=== PATIENT | male | born 1960 | race Caucasian/White ===

== ENCOUNTER → 2016-09-23 | Outpatient (CLI) | payer OTHER ==
[~2016-09-23] VITALS: Ht 177.8 cm; Wt 111.1 kg
[~2016-09-23] MED LIST: ADVA230A INH; LIDOCAINE 2% INJ 100 MG/5 ML SDV (FOR ANES.) As Ordered ONE; METF500T PO; MULT1TAB10 PO; NS 1,000 ML IV SCH; PROPOFOL 200 MG/20 ML VIAL As Ordered ONE; SIMV20TA2 PO; VERA27.5; VITA100037 PO
--- NOTE | 2016-09-23 11:11 | ROOR ---
Patient Name: Rolando Carias Procedure Date: 09/23/2016 10:55 AM Date of : 1960 Age: 56 Room: [facility] Gender: Male Note Status: Finalized Procedure: Upper GI endoscopy Indications: Abnormal UGI series, Abnormal CT of the GI tract Providers: Michael Worley Jr, MD Referring MD: Po Grimes MD Requesting Provider: Medicines: Propofol per Anesthesia Complications: No immediate complications. Procedure: Pre-Anesthesia Assessment: - Prior to the procedure, a History and Physical was performed, and patient medications and allergies were reviewed. The patient is competent. The risks and benefits of the procedure and the sedation options and risks were discussed with the patient. All questions were answered and informed consent was obtained. Patient identification and proposed procedure were verified by the physician and the nurse in the pre-procedure area and in the procedure room. Mental Status Examination: alert and oriented. Airway Examination: normal oropharyngeal airway and neck mobility. Respiratory Examination: clear to auscultation. CV Examination: normal. ASA Grade Assessment: II - A patient with mild systemic disease. After reviewing the risks and benefits, the patient was deemed in satisfactory condition to undergo the procedure. The anesthesia plan was to use moderate sedation / analgesia (conscious sedation). Immediately prior to administration of medications, the patient was re-assessed for adequacy to receive sedatives. The heart rate, respiratory rate, oxygen saturations, blood pressure, adequacy of pulmonary ventilation, and response to care were monitored throughout the procedure. The physical status of the patient was re-assessed after the procedure. The Endoscope was introduced through the mouth, and advanced to the second part of duodenum. The patient tolerated the procedure well. Findings: The upper third of the esophagus, middle third of the esophagus and lower third of the esophagus were normal. The gastroesophageal junction was normal. Patchy mild inflammation characterized by congestion (edema) and granularity was found in the gastric fundus, in the gastric antrum and in the prepyloric region of the stomach. Biopsies were taken with a cold forceps for histology. The second portion of the duodenum was normal. Scattered moderate inflammation characterized by congestion (edema), erythema, friability and granularity was found in the first portion of the duodenum. Impression: - Normal upper third of esophagus, middle third of esophagus and lower third of esophagus. - Normal gastroesophageal junction. - Gastritis. Biopsied. - Normal second portion of the duodenum. - Duodenitis. Recommendation: - Discharge patient to home (ambulatory). - Return to my office in 2 weeks. Michael Worley MD Michael Worley Jr, MD 09/23/2016 11:11:23 AM This report has been signed electronically. Number of Addenda: 0 Note Initiated On: 09/23/2016 10:55 AM Estimated Blood Loss: Estimated blood loss: none.
[2016-09-23 11:25] VITALS: BP 150/75
== END ==
LOC: M OPP 10:00
PROVIDERS: ATTEND Surgery
DX: R93.3 Abnormal findings on diagnostic imaging of other parts of digestive tract (principal); K29.70 Gastritis, unspecified, without bleeding; K29.80 Duodenitis without bleeding; R10.11 Right upper quadrant pain; E11.9 Type 2 diabetes mellitus without complications; J44.9 Chronic obstructive pulmonary disease, unspecified; J45.909 Unspecified asthma, uncomplicated; E78.5 Hyperlipidemia, unspecified; G47.30 Sleep apnea, unspecified; R06.83 Snoring; Z87.891 Personal history of nicotine dependence; Z80.6 Family history of leukemia; Z88.6 Allergy status to analgesic agent; Z88.8 Allergy status to other drugs, medicaments and biological substances; Z79.84 Long term (current) use of oral hypoglycemic drugs; Z79.51 Long term (current) use of inhaled steroids; Z79.899 Other long term (current) drug therapy

== ENCOUNTER → 2017-01-03 | Outpatient (CLI) | payer OTHER ==
[~2017-01-03] MED LIST changes: -LIDOCAINE 2% INJ 100 MG/5 ML SDV (FOR ANES.) As Ordered ONE; -NS 1,000 ML IV SCH; -PROPOFOL 200 MG/20 ML VIAL As Ordered ONE
--- NOTE | 2017-01-03 08:39 | REP ---
Clinical: COPD . Comparison: 09/10/2015 . Technique: PA and lateral. Findings: The mediastinum and cardiac silhouette are normal. The lung garcia demonstrate chronic changes without acute consolidation, effusion, or pneumothorax. The skeletal structures are intact and normal. Impression: 1. No acute cardiopulmonary process. Signed by Jose Giles MD 01/03/2017 08:31 A
== END ==
LOC: M SMT 07:58
PROVIDERS: ATTEND Internal Medicine Pulmonary Disease
DX: J44.9 Chronic obstructive pulmonary disease, unspecified (principal)

== ENCOUNTER → 2020-01-10 | Outpatient (REF) | payer OTHER ==
[~2020-01-10] MED LIST changes: -METF500T PO; +METF500T13 PO; -SIMV20TA2 PO; +SIMV20TA22 PO; -VITA100037 PO; +VITA100067 PO
[2020-01-12 08:08] LABS: LDL DIRECT 50 mg/dL (0-99)
== END ==
LOC: M LAB REF 16:57
PROVIDERS: ATTEND Family Medicine
DX: E78.5 Hyperlipidemia, unspecified (principal)

== ENCOUNTER → 2021-07-30 | Outpatient (REF) | payer OTHER ==
[2021-07-30 17:45] LABS: AMYLASE 47 U/L (25-115); LIPASE 113 U/L (73-393)
== END ==
LOC: M LAB REF 16:20
PROVIDERS: ATTEND Family Medicine
DX: R10.9 Unspecified abdominal pain (principal)

== ENCOUNTER → 2021-08-17 | Outpatient (CLI) | payer OTHER ==
[~2021-08-17] MED LIST changes: +GASTROGRAFIN SOLUTION 30ML (Q9963) As Ordered ONE; +ISOVUE-370 76% 100ML VIAL As Ordered ONE
--- NOTE | 2021-08-17 20:16 | REP ---
INDICATION: ABD PAIN. COMPARISON: None TECHNIQUE: Axial contrast-enhanced images from the lung bases to the pubic symphysis using oral and 100 cc Isovue 370 intravenous contrast material. Coronal and sagittal reformations obtained. This CT examination was performed using the following dose reduction techniques: Automated exposure control, adjustment of mA and/or kv according to the patient's size, and the use of iterative reconstruction technique. FINDINGS: There is significant circumferential thickening of the visualized esophagus to the gastroesophageal junction. Liver demonstrates generalized fatty infiltration without focal hepatic lesion. Spleen, pancreas, gallbladder, bilateral adrenal glands and kidneys are essentially normal. Subcentimeter left renal cyst is suggested. The small and large bowel is without obstruction or acute inflammatory process. Normal terminal ileum and cecum are identified in the right lower quadrant. Colonic and sigmoid diverticulosis noted without acute diverticulitis. Pelvis demonstrates normal bladder and age-appropriate prostate/seminal vesicles. No ascites. No free air. No intraperitoneal or retroperitoneal adenopathy. Abdominal aorta and vasculature demonstrate atherosclerotic changes without aneurysm or dissection. Musculoskeletal structures are intact and without acute osseous abnormality. IMPRESSION: 1. Circumferential esophageal thickening requires correlation and may warrant GI consultation. 2. Diverticulosis without acute diverticulitis. 3. Hepatosteatosis <Electronically signed by Jose Giles > 08/17/212011
== END ==
LOC: M RAD 14:15
PROVIDERS: ATTEND Family Medicine
DX: R10.9 Unspecified abdominal pain (principal)
CPT/HCPCS: 74178; Q9963; Q9967

== ENCOUNTER → 2021-09-04 | Outpatient (CLI) | payer OTHER ==
[~2021-09-04] MED LIST changes: -GASTROGRAFIN SOLUTION 30ML (Q9963) As Ordered ONE; -ISOVUE-370 76% 100ML VIAL As Ordered ONE
== END ==
LOC: M RAD 09:02
PROVIDERS: ATTEND Family Medicine
DX: M54.59 Other low back pain (principal)

== ENCOUNTER → 2022-05-16 | Outpatient (CLI) | payer OTHER ==
[~2022-05-16] MED LIST changes: +VITA100093 PO
== END ==
LOC: M LABSMTC 11:36
PROVIDERS: ATTEND Anesthesiology
DX: Z01.812 Encounter for preprocedural laboratory examination (principal); Z20.822 Contact with and (suspected) exposure to COVID-19

== ENCOUNTER 2022-05-20 06:35 | Day surgery (SDC) | payer OTHER ==
[~2022-05-20] VITALS: Ht 177.8 cm; Wt 110.6 kg
[~2022-05-20 06:35] MED LIST changes: +NS 1,000 ML IV ONE
[2022-05-20] MEDS ORDERED: LIDOCAINE 2% 100MG/5ML SDV (FOR ANES.) As Ordered ONE (07:06)
[2022-05-20] MEDS ORDERED: propofoL 200 MG/20 ML VIAL As Ordered ONE (07:06)
[2022-05-20 08:10] VITALS: BP 158/76
== END 2022-05-20 08:19 | disposition home or self-care (01) ==
LOC: M OPP 06:35
PROVIDERS: ATTEND Surgery
DX: Z12.11 Encounter for screening for malignant neoplasm of colon (principal); D12.2 Benign neoplasm of ascending colon; K57.30 Diverticulosis of large intestine without perforation or abscess without bleeding; Z79.02 Long term (current) use of antithrombotics/antiplatelets; Z79.51 Long term (current) use of inhaled steroids; Z79.84 Long term (current) use of oral hypoglycemic drugs; Z79.899 Other long term (current) drug therapy; Z99.89 Dependence on other enabling machines and devices; G47.33 Obstructive sleep apnea (adult) (pediatric); E11.9 Type 2 diabetes mellitus without complications; E78.00 Pure hypercholesterolemia, unspecified; J44.9 Chronic obstructive pulmonary disease, unspecified; Z80.6 Family history of leukemia; Z87.891 Personal history of nicotine dependence

== ENCOUNTER → 2025-03-08 | Outpatient (CLI) | payer OTHER ==
[~2025-03-08] MED LIST changes: -NS 1,000 ML IV ONE
== END ==
LOC: M WUC 09:42
PROVIDERS: ATTEND Family Medicine
DX: M54.50 Low back pain, unspecified (principal); M47.816 Spondylosis without myelopathy or radiculopathy, lumbar region

== ENCOUNTER → 2025-04-16 | Outpatient (CLI) | payer OTHER ==
[~2025-04-16] MED LIST changes: +E-Z-GAS II EFFERVESCENT PACKET (SODIUM BICARB./CITRIC ACID/SIMETHICONE) As Ordered ONE; +E-Z-HD 98% w/w 340 GM SUSP BTL As Ordered ONE; +E-Z-PAQUE 96% w/w SUSP 176 GM BTL As Ordered ONE
== END ==
LOC: M RAD 07:32
PROVIDERS: ATTEND Surgery
DX: R13.10 Dysphagia, unspecified (principal); R93.3 Abnormal findings on diagnostic imaging of other parts of digestive tract

== ENCOUNTER 2025-05-09 08:44 | Inpatient (IN) | payer OTHER, MEDICARE ==
[~2025-05-09] VITALS: Ht 177.8 cm; Wt 109.7 kg
[2025-05-09] VITALS (21 sets, daily range): BP systolic 104–148; BP diastolic 53–102; TEMP 97.3–98.4; O2SAT 95–98
[~2025-05-09 08:44] MED LIST changes: +BREO1INH3 INH; -E-Z-GAS II EFFERVESCENT PACKET (SODIUM BICARB./CITRIC ACID/SIMETHICONE) As Ordered ONE; -E-Z-HD 98% w/w 340 GM SUSP BTL As Ordered ONE; -E-Z-PAQUE 96% w/w SUSP 176 GM BTL As Ordered ONE; +MOME50SP2 NARES; +OMEP40CA5 PO
[2025-05-09] MEDS ORDERED: METOPROLOL 5 MG/5 ML VIAL As Ordered ONE (09:52)
[2025-05-09] MEDS ORDERED: LR 1,000 ML IV SCH (10:05)
[2025-05-09] MEDS ORDERED: METOPROLOL 5 MG/5 ML VIAL IV PRN (10:05)
[2025-05-09] MEDS ORDERED: ONDANSETRON 4MG 2ML VIAL IV PRN (10:05)
[2025-05-09] MEDS ORDERED: MAALOX 30 ML SUSP *UDC PO PRN (10:45)
[2025-05-09] MEDS ORDERED: ACETAMINOPHEN 325 MG TAB PO PRN (10:45)
[2025-05-09] MEDS ORDERED: MOM 30 ML SUSPENSION UDC PO PRN (10:45)
[2025-05-09 11:06] LABS: PLATELET COUNT, AUTOMATED 207 10^3/uL (150-450)
[2025-05-09] MEDS: METOPROLOL 5 MG/5 ML VIAL IV SCH ×2 (11:14→13:05)
[2025-05-09] MEDS: METOPROLOL TART 25 MG TABLET PO SCH ×2 (11:14→17:21)
[2025-05-09] MEDS ORDERED: GLUCOSE 4 GM CHEW PO PRN (11:25)
[2025-05-09] MEDS ORDERED: GLUCAGON INJ 1 MG VIAL SC PRN (11:25)
[2025-05-09] MEDS ORDERED: DEXTROSE 50% 50 ML SYRINGE IV PRN (11:25)
[2025-05-09 11:37] LABS: ALT/SGPT 22 U/L (7.0-40); AST/SGOT 17 U/L (<34); CALCIUM LEVEL 8.6 MG/DL (8.3-10.6); CARBON DIOXIDE LEVEL 28 MMOL/L (20-31); CHLORIDE LEVEL 107 MMOL/L (98-107); CREATININE FOR GFR 0.53 MG/DL (0.70-1.30); GLOMERULAR FILTRATION RATE > 90.0 (>49); MAGNESIUM LEVEL 1.8 MG/DL (1.8-2.4); POTASSIUM SERUM 4.3 MMOL/L (3.5-5.1); SODIUM LEVEL 142 MMOL/L (136-145)
[2025-05-09] MEDS: APIXABAN 5 MG TAB PO SCH (12:24)
[2025-05-09] MEDS: THIAMINE 100 MG TAB PO SCH (12:24)
[2025-05-09] MEDS: INSULIN LISPRO (NovoLOG) PER UNIT SC SCH ×2 (12:25→20:15)
[2025-05-09] MEDS ORDERED: METF10004 PO (12:52)
[2025-05-09] MEDS ORDERED: VITA100093 PO (12:52)
[2025-05-09] MEDS ORDERED: HOME MED LIST COMPLETE! XX SCH (12:55)
[2025-05-09] MEDS: DIGOXIN INJ 0.5 MG/2 ML AMP IV STA ×2 (15:07→16:36)
[2025-05-10 00:12] VITALS: BP 119/87; TEMP 98; O2SAT 94
[2025-05-10 04:21] VITALS: BP 118/82; TEMP 97.2; O2SAT 96
[2025-05-10 05:10] LABS: CALCIUM LEVEL 8.7 MG/DL (8.3-10.6); CARBON DIOXIDE LEVEL 29 MMOL/L (20-31); CHLORIDE LEVEL 107 MMOL/L (98-107); CREATININE FOR GFR 0.62 MG/DL (0.70-1.30); GLOMERULAR FILTRATION RATE > 90.0 (>49); MAGNESIUM LEVEL 1.9 MG/DL (1.8-2.4); POTASSIUM SERUM 4.4 MMOL/L (3.5-5.1); SODIUM LEVEL 143 MMOL/L (136-145)
[2025-05-10 08:00] VITALS: BP 131/72; TEMP 98.5; O2SAT 95
[2025-05-10] MEDS: FOLIC ACID 1 MG TAB PO SCH (08:09)
[2025-05-10] MEDS: DIGOXIN 0.25 MG TAB PO SCH (08:10)
[2025-05-10] MEDS: MULTIVITAMINS/MINERALS THERAP 1 TAB PO SCH (08:10)
[2025-05-10 08:39] LABS: DIGOXIN LEVEL 0.5 NG/ML (0.8-2.0)
[2025-05-10 12:00] VITALS: BP 149/79; TEMP 98.5; O2SAT 96
[2025-05-10] MEDS ORDERED: METOPROLOL TART 25 MG TABLET PO SCH (12:00)
[2025-05-10] MEDS: METOPROLOL TARTRATE 100 MG TAB PO SCH (12:18)
[2025-05-10] MEDS: DIGOXIN INJ 0.5 MG/2 ML AMP IV ONE (14:13)
[2025-05-10 17:20] VITALS: BP 134/77; TEMP 99.6; O2SAT 97
[2025-05-10 20:00] VITALS: BP 147/69; TEMP 98.5; O2SAT 96
[2025-05-11] VITALS: BP 147/94; TEMP 97.8; O2SAT 95
[2025-05-11 05:27] VITALS: BP 104/74; TEMP 98; O2SAT 95
[2025-05-11 06:03] LABS: CALCIUM LEVEL 8.7 MG/DL (8.3-10.6); CARBON DIOXIDE LEVEL 30 MMOL/L (20-31); CHLORIDE LEVEL 104 MMOL/L (98-107); CREATININE FOR GFR 0.58 MG/DL (0.70-1.30); GLOMERULAR FILTRATION RATE > 90.0 (>49); MAGNESIUM LEVEL 1.9 MG/DL (1.8-2.4); POTASSIUM SERUM 4.1 MMOL/L (3.5-5.1); SODIUM LEVEL 142 MMOL/L (136-145)
[2025-05-11 08:00] VITALS: BP 134/75; TEMP 98.1; O2SAT 98
[2025-05-11 11:00] VITALS: BP 149/84; O2SAT 96
[2025-05-11] MEDS ORDERED: ELIQ5TAB PO (11:02)
[2025-05-11] MEDS ORDERED: LOPR1TAB7 PO (11:02)
[2025-05-11] MEDS ORDERED: DIGO0.253 PO (11:02)
[2025-05-11 11:04] VITALS: BP 149/84
[2025-05-11] MEDS: FLUZONE HIGH DOSE (65+) 0.5 ML SYRINGE (25-26) IM.IMMUN ONE (12:44)
== END 2025-05-11 13:06 | disposition home or self-care (01) | DRG 310 ==
LOC: M OPP 08:44 → M ICU 10:43
PROVIDERS: ADMIT Student in an Organized Health Care Education/Training Program; ATTEND Surgery
DX: I48.92 Unspecified atrial flutter (principal); E11.9 Type 2 diabetes mellitus without complications; G47.33 Obstructive sleep apnea (adult) (pediatric); E78.5 Hyperlipidemia, unspecified; J44.9 Chronic obstructive pulmonary disease, unspecified; R13.10 Dysphagia, unspecified; F10.10 Alcohol abuse, uncomplicated; K21.9 Gastro-esophageal reflux disease without esophagitis; Z88.6 Allergy status to analgesic agent; Z88.8 Allergy status to other drugs, medicaments and biological substances; Z79.899 Other long term (current) drug therapy; Z53.09 Procedure and treatment not carried out because of other contraindication

== ENCOUNTER → 2025-05-15 | Outpatient (REF) | payer OTHER ==
[~2025-05-15] MED LIST changes: +DIGO0.253 PO; +ELIQ5TAB PO; +LOPR1TAB7 PO; +METF10004 PO
== END ==
LOC: M LAB REF 14:20
PROVIDERS: ATTEND Nurse Practitioner Adult Health
DX: Z51.81 Encounter for therapeutic drug level monitoring (principal)

== ENCOUNTER 2025-07-29 06:09 | Day surgery (SDC) | payer OTHER ==
[~2025-07-29] VITALS: Ht 180.3 cm; Wt 109.9 kg
[~2025-07-29 06:09] MED LIST changes: +AMIO200T54 PO; +ATOR40TA75 PO; +ENAL1TAB48 PO; +METO100T5 PO; +PROA1AER2 IN; +THERTAB52 PO
[2025-07-29] MEDS ORDERED: INSULIN LISPRO (NovoLOG) PER UNIT SC PRN (06:25)
[2025-07-29] MEDS ORDERED: GLUCOSE 4 GM CHEW PO PRN (06:25)
[2025-07-29] MEDS ORDERED: GLUCAGON INJ 1 MG VIAL SC PRN (06:25)
[2025-07-29] MEDS ORDERED: LR 1,000 ML IV SCH (06:25)
[2025-07-29] MEDS ORDERED: DEXTROSE 50% 50 ML SYRINGE IV PRN (06:25)
[2025-07-29] MEDS ORDERED: ONDANSETRON 4MG/2ML VIAL As Ordered ONE (06:54)
[2025-07-29] MEDS ORDERED: LIDOCAINE 2% 100 MG/5 ML SDV (FOR ANES.) As Ordered ONE (06:54)
[2025-07-29 08:00] VITALS: BP 110/60; TEMP 97.4; O2SAT 95
== END 2025-07-29 08:25 | disposition home or self-care (01) ==
LOC: M SDC 06:09
PROVIDERS: ATTEND Internal Medicine Cardiovascular Disease
DX: I48.11 Longstanding persistent atrial fibrillation (principal); J44.9 Chronic obstructive pulmonary disease, unspecified; E78.5 Hyperlipidemia, unspecified; I10 Essential (primary) hypertension; K21.9 Gastro-esophageal reflux disease without esophagitis; G47.33 Obstructive sleep apnea (adult) (pediatric); Z79.01 Long term (current) use of anticoagulants; E11.9 Type 2 diabetes mellitus without complications; Z79.84 Long term (current) use of oral hypoglycemic drugs; Z79.899 Other long term (current) drug therapy